=== PATIENT | male | born 2000 | race Caucasian/White ===

== ENCOUNTER 2018-06-17 21:56 | Emergency (ER) | payer BC ==
--- NOTE | 2018-06-17 22:19 | EDPHY ---
H & P Stated Complaint: L testicle pain, "feels like i have a hernia", denies intimate relations Time Seen by Provider: 06/17/18 22:19 HPI/ROS: HPI CHIEF COMPLAINT: Left testicular pain since Sunday. No trauma. HISTORY OF PRESENT ILLNESS: 17-year-old male, otherwise healthy no significant medical history presents emergency room with left testicular pain since Sunday. States he has had intermittent left testicular pain but worse tonight. His main pain is above his testicle along testicular epididymal cord. Patient denies fever, denies trauma, denies urinary symptoms. Denies dysuria , denies STI exposure denies discharge. Never had this before. No trauma. Denies abdominal pain or suprapubic pain. Patient reports he had intercourse 1 month ago with female partner that he normally has intercourse with protected. He denies STI exposure. Past Medical History: Denies significant medical history Past Surgical History: Denies significant surgical history Social History: Denies drugs alcohol tobacco. Family History: Noncontributory ROS REVIEW OF SYSTEMS: 10 Systems were reviewed and negative with the exception of the elements mentioned in the history of present illness. Exam Constitutional triage nursing summary reviewed, vital signs reviewed, awake/ alert. Eyes normal conjunctivae and sclera, EOMI, PERRLA. HENT normal inspection, atraumatic, moist mucus membranes, no epistaxis, neck supple/ no meningismus, no raccoon eyes. Respiratory clear to auscultation bilaterally, normal breath sounds, no respiratory distress, no wheezing. Cardiovascular rate normal, regular rhythm, no murmur, no edema, distal pulses normal. Gastrointestinal soft, non-tender, no rebound, no guarding, normal bowel sounds, no distension, no pulsatile mass. Genitourinary FRANK RN AT BEDSIDE as tallow pumper, normal testicular exam. Minimal tenderness to left testicle however upon palpation of the epididymal cord tender palpation. No hernia. Normal cremasteric reflex. Circumcised. No external lesions. No inguinal hernia on exam. No malrotation of testicle on exam. Musculoskeletal no midline vertebral tenderness, full range of motion, no calf swelling, no tenderness of extremities, no meningismus, good pulses, neurovascularly intact. Skin pink, warm, & dry, no rash, skin atraumatic. Neurologic awake, alert and oriented x 3, AAOx3, moves all 4 extremities equally, motor intact, sensory intact, CN II-XII intact, normal cerebellar, normal vision, normal speech. Psychiatric normal mood/affect. Heme/Lymph/Immune no lymphadenopathy. Differential Diagnosis: Includes but is not limited to in a particular order orchitis, epididymitis, torsion, hernia, varicocele Medical Decision Making: Plan for this patient ultrasound testicle, he is tender palpation along his epididymal cord most likely epididymitis. But rule out torsion. Check UA clean urine and dirty urine. Re-evaluation: Urinalysis reviewed. Ultrasound has been reviewed shows orchitis. Good blood flow no evidence of torsion. Will place on ciprofloxacin. As well as ibuprofen. Recommend he follows up with Urology. Return to the emergency room if worsening pain I discussed risk of ciprofloxacin and tendon rupture. He understands not do any significant vigorous heavy lifting or significant vigorous activity while on ciprofloxacin any few weeks afterwards. He understands the risk of ciprofloxacin. Patient understands risk of taking ciprofloxacin tendon rupture. Discussed this at length. He understands to drink lots of fluids, follow up with Urology, anti- inflammatory pain medicine antibiotic as prescribed. Source: Patient - Personal History Current Tetanus Diphtheria and Acellular Pertussis (TDAP): No - Medical/Surgical History Hx Asthma: No Hx Chronic Respiratory Disease: No Hx Diabetes: No Hx Cardiac Disease: No Hx Renal Disease: No Hx Cirrhosis: No Hx Alcoholism: No Hx HIV/AIDS: No Hx Splenectomy or Spleen Trauma: No Other PMH: Denies - Social History Smoking Status: Never smoked Constitutional: Initial Vital Signs Temperature (C) 36.8 C 06/17/18 21:59 Heart Rate 83 06/17/18 21:59 Respiratory Rate 19 06/17/18 21:59 Blood Pressure 136/66 H 06/17/18 21:59 O2 Sat (%) 96 06/17/18 21:59 O2 Delivery Mode Room Air Allergies/Adverse Reactions: No Known Allergies Allergy (Unverified 06/17/18 22:01) Home Medications: Medication Instructions Recorded Ciprofloxacin [Cipro] 500 mg PO BID #14 tab 06/18/18 Ibuprofen [Motrin (*)] 800 mg PO Q6-8PRN #10 tab 06/18/18 Medical Decision Making - Diagnostics Imaging Results: Imaging Impressions Testicular Ultrasound 06/17/18 22:19 Impression: Mild left orchitis. Results discussed with Dr. Flores at 11:13 PM. - Data Points Laboratory Results: 06/17/18 06/17/18 22:40 22:40 Urine Color YELLOW Urine Appearance HAZY Urine pH 6.0 (5.0-7.5) Ur Specific [place] 1.023 (1.002-1.030) Urine Protein NEGATIVE (NEGATIVE) Urine Ketones NEGATIVE (NEGATIVE) Urine Blood NEGATIVE (NEGATIVE) Urine Nitrate NEGATIVE (NEGATIVE) Urine Bilirubin NEGATIVE (NEGATIVE) Urine Urobilinogen NEGATIVE EU EU (0.2-1.0) Ur Leukocyte Esterase NEGATIVE (NEGATIVE) Urine Glucose NEGATIVE (NEGATIVE) N.gonorrhoeae RNA (TMA) Pending Medications Given: Discontinued Medications Ciprofloxacin (Cipro) 500 mg PO EDNOW ONE PRN Reason: Protocol Stop: 06/17/18 23:17 Last Admin: 06/17/18 23:42 Dose: 500 mg Ibuprofen (Motrin) 800 mg PO EDNOW ONE Stop: 06/17/18 23:17 Last Admin: 06/17/18 23:42 Dose: 800 mg Departure - Departure Disposition: Home, Routine, Self-Care Clinical Impression: Epididymitis, Acute orchitis Condition: Good Instructions: Epididymitis (ED), Testicle Pain (ED), Orchitis (ED) Additional Instructions: 1. Return to the emergency room if you have worsening pain 2. Follow up with Urology 3. Antibiotics as prescribed Referrals: NONE *PRIMARY CARE P,. [Primary Care Provider] - As per Instructions Martin Pulido MD [Medical Doctor] - As per Instructions Prescriptions: Ciprofloxacin [Cipro] 500 mg PO BID #14 tab Ibuprofen [Motrin (*)] 800 mg PO Q6-8PRN #10 tab
[2018-06-17] MEDS ORDERED: IBUPROFEN 800 MG TAB PO ONE (23:16)
[2018-06-17] MEDS ORDERED: CIPROFLOXACIN 500 MG TAB PO ONE (23:16)
[2018-06-18 00:53] VITALS: BP 117/68
[2018-06-18 11:40] LABS: GC AMPLIFICATION GENPROBE NEGATIVE (NEGATIVE)
== END 2018-06-18 01:25 | disposition home or self-care (01) ==
DX: N45.3 Epididymo-orchitis (principal)

== ENCOUNTER → 2018-10-18 | Outpatient (CLI) | payer BC | LOC: FIMAGING 10:18 | PROVIDERS: ATTEND Physician Assistant Medical | DX: N50.82 Scrotal pain (principal); N50.3 Cyst of epididymis; N43.3 Hydrocele, unspecified ==